=== PATIENT | male | born 1975 | race Caucasian/White ===

== ENCOUNTER 2016-09-26 13:06 | Day surgery (SDC) | payer BC ==
--- NOTE | ~2016-09-26 | EGD ---
EGD REPORT [facility] [address] [place]. [address] NAME: BJORN KULKARNI III : [birth year] STATUS : REG [facility] [place] PAT#: [id number] AGE: 41 ADM/REG DATE : 09/26/16 MR#: [id number] REPORT SERV DATE: 09/26/16 DICTATED BY: BHAVIN NUNES DATE: 09/26/16 REPORT STATUS : Draft TRANSCRIBED BY: [facility] DATE: 09/26/16 [facility] Center Patient Name: Bjorn Kulkarni Date of : 1975 Attending MD: JAYME NUNES MD Procedure Date No Time: 09/26/2016 Procedure: Upper GI endoscopy Indications: Heme positive stool Referring MD: ESE HILL MD Medicines: See the Anesthesia note for documentation of the administered medications Complications: No immediate complications. Estimated blood loss: Minimal. Procedure: Pre-Anesthesia Assessment: - ASA Grade Assessment: II - A patient with mild systemic disease. - Prior to the procedure, a History and Physical was performed, and patient medications and allergies were reviewed. The patient's tolerance of previous anesthesia was also reviewed. The risks and benefits of the procedure and the sedation options and risks were discussed with the patient. All questions were answered, and informed consent was obtained. Prior Anticoagulants: The patient has taken no previous anticoagulant or antiplatelet agents. After reviewing the risks and benefits, the patient was deemed in satisfactory condition to undergo the procedure. After obtaining informed consent, the endoscope was passed under direct vision. Throughout the procedure, the patient's blood pressure, pulse, and oxygen saturations were monitored continuously. The GIF H190 [id number] was introduced through the mouth, and advanced to the third part of duodenum. The upper GI endoscopy was accomplished without difficulty. The patient tolerated the procedure well. Findings: The examined duodenum was normal. The entire examined stomach was normal. The cardia and gastric fundus were normal on retroflexion. Diffuse mild inflammation characterized by erythema was found in the lower third of the esophagus. Biopsy with a cold forceps was performed for histology. No other significant abnormalities were identified in a careful examination of the esophagus. EGD REPORT [address] [address] NAME: BJORN KULKARNI III : [birth year] STATUS : REG [facility]#: [id number] AGE: 41 ADM/REG DATE : 09/26/16 MR#: [id number] REPORT SERV DATE: 09/26/16 DICTATED BY: BHAVIN NUNES DATE: 09/26/16 REPORT STATUS : Draft TRANSCRIBED BY: [facility] DATE: 09/26/16 Impression: - Normal examined duodenum. - Normal stomach. - Esophageal mucosal changes were present, including erythema. Findings are suggestive of reflux inflammation. Biopsied. Recommendation: - Patient has a contact number available for emergencies. The signs and symptoms of potential delayed complications were discussed with the patient. Return to normal activities tomorrow. Written discharge instructions were provided to the patient. - Regular diet. - Discharge patient to home. - Continue present medications. - Await pathology results. Procedure Code(s): --- Professional --- 69460, Esophagogastroduodenoscopy, flexible, transoral; with biopsy, single or multiple Diagnosis Code(s): --- Professional --- K22.8, Other specified diseases of esophagus R19.5, Other fecal abnormalities CPT copyright 2013 [employer]. All rights reserved. The codes documented in this report are preliminary and upon four slide machine setter review may be revised to meet current compliance requirements. JAYME NUNES MD 09/26/2016 2:41 PM This report has been signed electronically. Number of Addenda: 0 Note Initiated On: 09/26/2016 2:15 PM Scope Withdrawal Time 0 hours 0 minutes 0 seconds [address] [place] [address]
--- NOTE | ~2016-09-26 | EGD ---
EGD REPORT [facility] [address] [place]. [address] NAME: BJORN KULKARNI III : [birth year] STATUS : [facility] [place] PAT#: [id number] AGE: 41 ADM/REG DATE : 09/26/16 MR#: [id number] REPORT SERV DATE: 09/26/16 DICTATED BY: BHAVIN NUNES DATE: 09/26/16 REPORT STATUS : Draft [facility] DATE: 09/26/16 Endoscopy Center Patient Name: Bjorn Kulkarni Date of : 1975 Attending MD: JAYME NUNES MD Procedure Date No Time: 09/26/2016 Procedure: Colonoscopy Indications: Heme positive stool Referring MD: ESE HILL MD Medicines: See the Anesthesia note for documentation of the administered medications Complications: No immediate complications. Estimated blood loss: Minimal. Procedure: Pre-Anesthesia Assessment: - ASA Grade Assessment: II - A patient with mild systemic disease. - Prior to the procedure, a History and Physical was performed, and patient medications and allergies were reviewed. The patient's tolerance of previous anesthesia was also reviewed. The risks and benefits of the procedure and the sedation options and risks were discussed with the patient. All questions were answered, and informed consent was obtained. Prior Anticoagulants: The patient has taken no previous anticoagulant or antiplatelet agents. After reviewing the risks and benefits, the patient was deemed in satisfactory condition to undergo the procedure. After I obtained informed consent, the scope was passed under direct vision. Throughout the procedure, the patient's blood pressure, pulse, and oxygen saturations were monitored continuously. The PCF [id number] was introduced through the anus and advanced to the terminal ileum. The ileocecal valve, appendiceal orifice, terminal ileum and rectum were photographed. The entire colon was examined. The colonoscopy was performed without difficulty. The patient tolerated the procedure well. The quality of the bowel preparation was adequate. Findings: The perianal and digital rectal examinations were normal. The terminal ileum appeared normal. A semi-sessile polyp was found in the proximal ascending colon. The polyp was 30 mm in size. The polyp was removed with a hot snare. Resection and retrieval were complete. Area was successfully injected with 2 mL Spot (carbon black) for drug delivery. One hemostatic clip was EGD REPORT [place] [address] [place]. [address] NAME: BJORN KULKARNI III : [birth year] STATUS : REG [facility] [place] PAT#: [id number] AGE: 41 ADM/REG DATE : 09/26/16 MR#: [id number] REPORT SERV DATE: 09/26/16 DICTATED BY: BHAVIN NUNES DATE: 09/26/16 REPORT STATUS : Draft TRANSCRIBED BY: [employer] DATE: 09/26/16 successfully placed. This was done to prevent bleeding. A sessile polyp was found in the cecum. The polyp was 5 mm in size. The polyp was removed with a cold snare. Resection and retrieval were complete. Non-bleeding internal hemorrhoids were found during retroflexion and were Grade I (internal hemorrhoids that do not prolapse). No other significant abnormalities were identified in a careful examination of the remainder of the colon. Impression: - The examined portion of the ileum was normal. - One 30 mm polyp in the proximal ascending colon. Resected and retrieved. Injected. Clip was placed. - One 5 mm polyp in the cecum. Resected and retrieved. - Non-bleeding internal hemorrhoids. Recommendation: - Patient has a contact number available for emergencies. The signs and symptoms of potential delayed complications were discussed with the patient. Return to normal activities tomorrow. Written discharge instructions were provided to the patient. - Regular diet. - Discharge patient to home. - Continue present medications. - Await pathology results. - Repeat colonoscopy for surveillance based on pathology results. Procedure Code(s): --- Professional --- 97362, Colonoscopy, flexible, proximal to splenic flexure; with removal of tumor(s), polyp(s), or other lesion(s) by snare technique [id number], Colonoscopy, flexible, proximal to splenic flexure; with directed submucosal injection(s), any substance Diagnosis Code(s): --- Professional --- K64.0, First degree hemorrhoids D12.0, Benign neoplasm of cecum D12.2, Benign neoplasm of ascending colon R19.5, Other fecal abnormalities CPT copyright 2013 [employer]. All rights reserved. The codes documented in this report are preliminary and upon physician general internal medicine review may be revised to meet current compliance requirements. EGD REPORT [facility] [address] [address] NAME: BJORN KULKARNI III : [birth year] STATUS : REG [facility] [place] PAT#: [id number] AGE: 41 ADM/REG DATE : 09/26/16 MR#: [id number] REPORT SERV DATE: 09/26/16 DICTATED BY: BHAVIN NUNES DATE: 09/26/16 REPORT STATUS : Draft TRANSCRIBED BY: [employer] DATE: 09/26/16 JAYME NUNES MD 09/26/2016 3:23 PM This report has been signed electronically. Number of Addenda: 0 Note Initiated On: 09/26/2016 2:12 PM Scope Withdrawal Time 0 hours 34 minutes 1 second [id number] [id number]
[~2016-09-26 13:06] MED LIST: KEPPRA1000 MG PO; LAMICTAL XR100 MG PO; LAMICTAL XR200 MG PO
== END 2016-09-26 23:59 | disposition home or self-care (01) ==
LOC: DMU 13:06
PROVIDERS: Internal Medicine Gastroenterology
PROC: 0DB58ZX Excision of Esophagus, Via Natural or Artificial Opening Endoscopic, Diagnostic (ICD-10-PCS; 2016-09-26)
PROC: 0DBK8ZX Excision of Ascending Colon, Via Natural or Artificial Opening Endoscopic, Diagnostic (ICD-10-PCS; principal; 2016-09-26 14:30)
PROC: 0DBP8ZX Excision of Rectum, Via Natural or Artificial Opening Endoscopic, Diagnostic (ICD-10-PCS; 2016-09-26 14:30)
PROC: 3E0H8GC Introduction of Other Therapeutic Substance into Lower GI, Via Natural or Artificial Opening Endoscopic (ICD-10-PCS; 2016-09-26 14:30)
DX: D12.0 Benign neoplasm of cecum (principal); D12.2 Benign neoplasm of ascending colon; K64.0 First degree hemorrhoids; K20.9 Esophagitis, unspecified; G40.909 Epilepsy, unspecified, not intractable, without status epilepticus; Z79.899 Other long term (current) drug therapy; Z98.890 Other specified postprocedural states
CPT/HCPCS: 88305